=== PATIENT | male | born 2000 | race African-American/Black ===

== ENCOUNTER 2022-04-04 14:51 | Emergency (ER) | payer OTHER, SELFPAY ==
[2022-04-04 14:52] VITALS: BP 132/75; PULSE 73; RESP 16; TEMP 36.2; O2SAT 98; BMI 26.2
--- NOTE | 2022-04-04 16:45 | EX.ED.DYSGE1 ---
HPI History of Present Illness Chief Complaint: Foreign Body Narrative Narrative: 21-year-old male presenting with bilateral earrings/foreign bodies in his ears. He had them placed about a month ago. He states there were 2 small in the front. States that both sides went into the ear. He has the backings on the back of the earlobe. Both of his anterior earlobe openings have now closed up. No drainage, skin changes. Minimal pain. PFSH PFSH Medical History no medical history Home Medications NK 04/04/22 [History Last Taken Unknown] Allergy/AdvReac Type Severity Reaction Status Date / Time No Known Allergies Allergy Verified 04/04/22 14:53 Surgical History no surgical history Social History Smoking Status: Never smoker ROS ROS ED Constitutional Constitutional ED: Denies chills or fever(s) Eyes Eyes: Denies blurry vision or change in vision ENT ENT ED: Denies rhinorrhea or sore throat Cardiovascular Cardiovascular: Denies chest pain Respiratory/Chest Respiratory/Chest: Denies cough or dyspnea Gastrointestinal Gastrointestinal: Denies abdominal pain or constipation Genitourinary Genitourinary ED: Denies dysuria or hematuria Musculoskeletal Musculoskeletal: Denies arthralgias or back pain Integumentary Reports other Details: Foreign body bilateral ears ; Denies abscess Neurologic Neurologic: Denies headache(s) Psychiatric Psychiatric: Denies anxiety or depression EXAM Physical Exam Const Vital Signs: 04/04/22 14:52 04/04/22 16:09 Temperature 97.1 F L Temperature Source Temporal Pulse Rate 73 Respiratory Rate 16 Respiratory Effort Normal Respiratory Pattern Normal Blood Pressure 132/75 H Blood Pressure Mean 94 Pulse Ox 98 Oxygen Delivery Method Room Air General Appearance ED: Negative for pallor HEENT Reports normocephalic, head/scalp atraumatic and moist mucous membranes Eyes PERRL and EOMs intact bilaterally Neck no lymphadenopathy and supple Chest Wall inspection of chest normal and palpation of chest normal Resp normal respiratory effort and clear to auscultation bilaterally Auscultation: Negative for rales, rhonchi or wheezes Cardio regular rate and regular rhythm GI normal to inspection, nondistended, normoactive bowel sounds and non-distended Auscultation: normoactive bowel sounds Palpation: soft Narrative: Deferred Back/Spine no CVA tenderness General Back: Negative for CVA tenderness Cervical Spine: Negative for cervical spine tenderness Extremity normal to inspection General Extremety ED: Yes edema and tenderness General Extremity: edema Neuro oriented x3 and CN's II-XII intact bilaterally Sensorium / Orientation: alert Motor Exam: strength 5/5 throughout Psych mental status grossly normal Attitude: No agitated Skin Skin Narrative: Bilateral earlobes have retained earrings. No evidence of infection General Skin Exam: Negative for jaundice or pallor MDM MDM MDM Narrative Medical decision making narrative: 21-year-old male presenting with bilateral earrings embedded in his ears. Apparently the gauge was very small in the front and then migrated into his ears anteriorly. He still has the backings on the ears bilaterally. Patient requesting these to be removed. Alcohol prep was used to sterilize the areas bilaterally. 1% lidocaine used locally around the posterior openings bilaterally. Good anesthesia achieved. On the right side a small punch incision was used to dislodge the right earring. On the left this was able to be pulled out without incision. Minimal bleeding. Patient tolerated procedure well. Wounds cleaned and dressed. Wound care and monitoring for signs of infection discussed with patient. Patient discharged home in stable condition. Impression: 1. Foreign body bilateral earlobe Lab Data Attestation: I reviewed the patient's lab results. Discharge Plan Triage Chief Complaint: Foreign Body ED Provider: Oracio Bennett Dx/Rx/DC Orders Instructions: ED Foreign Body, Soft Tissue (Removed) Prescriptions: No Action NK Primary Care Provider: Oliverio Chavez Referrals: Oliverio Chavez MD [Primary Care Provider] - Disposition Disposition: Home, Self Care
== END 2022-04-04 17:13 | disposition home or self-care (01) ==
PROVIDERS: Emergency Provider Student in an Organized Health Care Education/Training Program; PCP Pediatrics; Visit Provider Student in an Organized Health Care Education/Training Program
DX: S00.451A Superficial foreign body of right ear, initial encounter (principal); S00.452A Superficial foreign body of left ear, initial encounter; X58.XXXA Exposure to other specified factors, initial encounter
CPT/HCPCS: 10120; 99282